=== PATIENT | male | born 1985 | race Caucasian/White ===

== ENCOUNTER 2017-12-19 19:42 | Emergency (ER) | payer OTHER ==
[~2017-12-19] VITALS: Ht 175.3 cm; Wt 95.0 kg
[~2017-12-19 19:42] MED LIST: Z.0.NO CURRENT MEDS
[2017-12-19 19:51] VITALS: BP 163/86; PULSE 108; RESP 16; TEMP 97.3; O2SAT 96
[2017-12-19] MEDS ORDERED: ACETAMINOPHEN 325 MG TAB PO PRN (20:15)
[2017-12-19] MEDS ORDERED: LORazepam 2 MG TAB PO PRN (20:15)
[2017-12-19] MEDS ORDERED: ONDANSETRON ODT 4 MG TAB PO PRN (20:15)
[2017-12-19] MEDS ORDERED: LORazepam 1 MG TAB PO PRN (20:15)
[2017-12-19] MEDS ORDERED: FLUMAZENIL 0.5 MG/5 ML VIAL IV PUSH PRN (20:15)
[2017-12-19] MEDS ORDERED: LORazepam 2 MG/ML VIAL IV PUSH PRN ×4 (20:15)
--- NOTE | 2017-12-19 20:58 | PD ---
HPI Chief Complaint: Alcohol/Drug Intoxication Time Seen by Provider: 20:01 Travel History International Travel<30 days: No Contact w/Intl Traveler<30days: No Traveled to known affect area: No History of Present Illness HPI 32-year-old male that presents to the ED for evaluation of a jaramillo act. Patient was Jaramillo acted by police after making suicidal statements. Patient states that he got in argument with his significant other and made suicidal statements. Patient apparently has been drinking a lot today. Per patient he does have a history of anxiety and depression. He denies any injury or trauma. He does smell heavily of alcohol. He denies any other drug use. Per patient has been taking medications for his depression and anxiety. Patient denies any other medical issues. No allergies to medication. Has not seen anybody for this. Symptoms appear to have worsened today secondary to argument as well as alcohol. PFSH Past Medical History Medical History: Denies Significant Hx Hx Anticoagulant Therapy: No Cardiovascular Problems: No Chemotherapy: No Cerebrovascular Accident: No Diabetes: No Diminished Hearing: No Respiratory: No Past Surgical History Surgical History: No Previous Surgery Tonsillectomy: Yes Other Surgery: Yes (RHINOPLASTY) Social History Alcohol Use: Yes (20 -30 DRINKS TODAY) Tobacco Use: Yes Substance Use: No Allergies-Medications (Allergen,Severity, Reaction): Coded Allergies: No Known Allergies (Unverified , 10/25/12) Reported Meds & Prescriptions Reported Meds & Active Scripts Active Reported No Current Meds (Miscellaneous Medication) Misc Review of Systems ROS Limitations: Intoxication Except as stated in HPI: all other systems reviewed are Neg Physical Exam Exam Limitations: Intoxication Narrative GENERAL: SKIN: Warm and dry. HEAD: Atraumatic. Normocephalic. EYES: Pupils equal and round. No scleral icterus. No injection or drainage. ENT: No nasal bleeding or discharge. Mucous membranes pink and moist. NECK: Trachea midline. No JVD. CARDIOVASCULAR: Regular rate and rhythm. RESPIRATORY: No accessory muscle use. Clear to auscultation. Breath sounds equal bilaterally. GASTROINTESTINAL: Abdomen soft, non-tender, nondistended. Hepatic and splenic margins not palpable. MUSCULOSKELETAL: Extremities without clubbing, cyanosis, or edema. No obvious deformities. NEUROLOGICAL: Awake and alert. No obvious cranial nerve deficits. Motor grossly within normal limits. Five out of 5 muscle strength in the arms and legs. Normal speech. PSYCHIATRIC: Appropriate mood and affect; insight and judgment normal. Data Data Last Documented VS Vital Signs Date Time Temp Pulse Resp B/P (MAP) Pulse Ox O2 Delivery O2 Flow Rate FiO2 12/19/17 19:51 97.3 108 16 163/86 (111) 96 Orders Orders Complete Blood Count With Diff (12/19/17 19:56) Comprehensive Metabolic Panel (12/19/17 19:56) Thyroid Stimulating Hormone (12/19/17 19:56) Psych Screen (12/19/17 19:56) Drug Screen, Random Urine (12/19/17 19:56) Alcohol (Ethanol) (12/19/17 19:56) Salicylates (Aspirin) (12/19/17 19:56) Tylenol (Acetaminophen) (12/19/17 19:56) Alcohol Withdrawal Asmt-Ciwa ONCE (12/19/17 20:01) Ondansetron Odt (Zofran Odt) (12/19/17 20:15) Acetaminophen (Tylenol) (12/19/17 20:15) Flumazenil Inj (Romazicon Inj) (12/19/17 20:15) Lorazepam (Ativan) (12/19/17 20:15) Lorazepam Inj (Ativan Inj) (12/19/17 20:15) Lorazepam (Ativan) (12/19/17 20:15) Lorazepam Inj (Ativan Inj) (12/19/17 20:15) Lorazepam Inj (Ativan Inj) (12/19/17 20:15) Lorazepam Inj (Ativan Inj) (12/19/17 20:15) Labs Laboratory Tests Test 12/19/17 20:06 [facility] Medical Decision Making Medical Screen Exam Complete: Yes Emergency Medical Condition: Yes Medical Record Reviewed: Yes Differential Diagnosis Depression versus suicidal ideation versus anxiety versus adjustment disorder versus mood disorder versus bipolar disorder versus schizophrenia versus paranoid disorder versus psychosis versus substance abuse versus alcohol abuse versus alcohol induced psychosis versus homicidality addition versus cutting versus personality disorder Narrative Course 32-year-old male that presents to the ED for evaluation of Jaramillo act. Patient was properly examined and was found to have signs and symptoms consistent appears to be Jaramillo act. Labs were ordered. Patient will be medically clear. Okay to be seen by psych. CIWA was ordered by me. Mental health screening was discussed with the patient. Diagnosis Primary Impression: Suicidal ideation Additional Impression: Alcohol intoxication Qualified Codes: F10.920 - Alcohol use, unspecified with intoxication, uncomplicated Eladio Null Dec 19, 2017 20:58
[2017-12-19 23:27] LABS: BASOPHIL # 0.1 TH/MM3 (0-0.2); BASOPHIL % 1.2 % (0.0-2.0); EOSINOPHIL # 0.3 TH/MM3 (0-0.4); EOSINOPHIL % 2.9 % (0.0-4.0); HEMATOCRIT 44.8 % (39.0-51.0); HEMOGLOBIN 15.3 GM/DL (13.0-17.0); LYMPH % 36.9 % (9.0-44.0); LYMPHOCYTE # 3.4 TH/MM3 (1.0-4.8); MEAN CELL VOLUME 91.4 FL (80.0-100.0); MEAN CORPUSCULAR HEMOGLOBIN 31.2 PG (27.0-34.0); MEAN CORPUSCULAR HGB CONC 34.2 % (32.0-36.0); MEAN PLATELET VOLUME 8.1 FL (7.0-11.0); MONO % 5.5 % (0.0-8.0); MONOCYTE # 0.5 TH/MM3 (0-0.9); NEUT % 53.5 % (16.0-70.0); PLATELET COUNT 261 TH/MM3 (150-450); RED CELL DISTRIBUTION WIDTH 13.3 % (11.6-17.2); WHITE BLOOD COUNT 9.3 TH/MM3 (4.0-11.0)
[2017-12-19 23:44] LABS: ACETAMINOPHEN LESS THAN 2.0 MCG/ML (10.0-30.0); ALBUMIN 4.1 GM/DL (3.4-5.0); ALT (GPT) 66 U/L (12-78); AST (GOT) 62 U/L (15-37); BICARBONATE 26.5 MEQ/L (21.0-32.0); BLOOD UREA NITROGEN 8 MG/DL (7-18); CALCIUM 8.4 MG/DL (8.5-10.1); CHLORIDE 103 MEQ/L (98-107); CREATININE 1.02 MG/DL (0.60-1.30); GLOMERULAR FILTRATION RATE 85 ML/MIN (>89); GLUCOSE,RANDOM 85 MG/DL (74-106); SODIUM (NA) 140 MEQ/L (136-145)
[2017-12-19 23:53] LABS: ALKALINE PHOSPHATASE 103 U/L (45-117); TOTAL BILIRUBIN ADULT 0.4 MG/DL (0.2-1.0); TOTAL PROTEIN 7.1 GM/DL (6.4-8.2)
[2017-12-20 02:43] VITALS: BP 114/59; PULSE 71; RESP 17; O2SAT 98
--- NOTE | 2017-12-20 09:32 | PD ---
Physical Exam Time Seen by Provider: 09:[address] Gonzales has evaluated the patient, lifted Jaramillo act and cleared the patient for discharge. Data Data Last Documented VS Vital Signs Date Time Temp Pulse Resp B/P (MAP) Pulse Ox O2 Delivery O2 Flow Rate FiO2 12/20/17 02:43 71 17 114/59 (77) 98 Room Air 12/19/17 19:51 97.3 Orders Orders Complete Blood Count With Diff (12/19/17 19:56) Comprehensive Metabolic Panel (12/19/17 19:56) Thyroid Stimulating Hormone (12/19/17 19:56) Psych Screen (12/19/17 19:56) Drug Screen, Random Urine (12/19/17 19:56) Alcohol (Ethanol) (12/19/17 19:56) Salicylates (Aspirin) (12/19/17 19:56) Tylenol (Acetaminophen) (12/19/17 19:56) Alcohol Withdrawal Asmt-Ciwa ONCE (12/19/17 20:01) Ondansetron Odt (Zofran Odt) (12/19/17 20:15) Acetaminophen (Tylenol) (12/19/17 20:15) Flumazenil Inj (Romazicon Inj) (12/19/17 20:15) Lorazepam (Ativan) (12/19/17 20:15) Lorazepam Inj (Ativan Inj) (12/19/17 20:15) Lorazepam (Ativan) (12/19/17 20:15) Lorazepam Inj (Ativan Inj) (12/19/17 20:15) Lorazepam Inj (Ativan Inj) (12/19/17 20:15) Lorazepam Inj (Ativan Inj) (12/19/17 20:15) Diet Regular Basic (12/20/17 Breakfast) Labs Laboratory Tests Test 12/19/17 20:06 12/19/17 23:15 Urine Opiates Screen NEG Urine Barbiturates Screen NEG Urine Amphetamines Screen NEG Urine Benzodiazepines Screen NEG Urine Cocaine Screen NEG Urine Cannabinoids Screen NEG White Blood Count 9.3 TH/MM3 Red Blood Count 4.90 MIL/MM3 Hemoglobin 15.3 GM/DL Hematocrit 44.8 % Mean Corpuscular Volume 91.4 FL Mean Corpuscular Hemoglobin 31.2 PG Mean Corpuscular Hemoglobin Concent 34.2 % Red Cell Distribution Width 13.3 % Platelet Count 261 TH/MM3 Mean Platelet Volume 8.1 FL Neutrophils (%) (Auto) 53.5 % Lymphocytes (%) (Auto) 36.9 % Monocytes (%) (Auto) 5.5 % Eosinophils (%) (Auto) 2.9 % Basophils (%) (Auto) 1.2 % Neutrophils # (Auto) 5.0 TH/MM3 Lymphocytes # (Auto) 3.4 TH/MM3 Monocytes # (Auto) 0.5 TH/MM3 Eosinophils # (Auto) 0.3 TH/MM3 Basophils # (Auto) 0.1 TH/MM3 CBC Comment DIFF FINAL Differential Comment Blood Urea Nitrogen 8 MG/DL Creatinine 1.02 MG/DL Random Glucose 85 MG/DL Total Protein 7.1 GM/DL Albumin 4.1 GM/DL Calcium Level 8.4 MG/DL Alkaline Phosphatase 103 U/L Aspartate Amino Transf (AST/SGOT) 62 U/L Alanine Aminotransferase (ALT/SGPT) 66 U/L Total Bilirubin 0.4 MG/DL Sodium Level 140 MEQ/L Potassium Level 4.1 MEQ/L Chloride Level 103 MEQ/L Carbon Dioxide Level 26.5 MEQ/L Anion Gap 11 MEQ/L Estimat Glomerular Filtration Rate 85 ML/MIN Thyroid Stimulating Hormone 3rd Gen 0.749 uIU/ML Salicylates Level LESS THAN 1.7 MG/DL Acetaminophen Level LESS THAN 2.0 MCG/ML Ethyl Alcohol Level 223 MG/DL MDM Supervised Visit with FAY: No Narrative Course Dr. Gonzales has evaluated the patient, lifted [facility] and cleared the patient for discharge. Patient contracts safety. Denies suicidal or homicidal ideations. [facility] be provided [facility]. Has friends and family for support. Patient was medically cleared by alternate provider prior to psych screening. Patient has been evaluated by psychiatry and and is now cleared for discharge. Diagnosis Primary Impression: Alcohol-induced mood disorder Additional Impressions: Alcohol intoxication Qualified Codes: F10.920 - Alcohol use, unspecified with intoxication, uncomplicated Suicidal ideation Referrals: [facility] (Out patient) [facility] Primary Care Physician Psychiatrist [facility] Patient Instructions: General Instructions, Mood Disorders (ED) Departure Forms: Tests/Procedures Additional Instruction: Contract safety to your self and others Stop drinking alcohol Follow-up in the community for community support, such as Alcoholics Anonymous Follow-up with psychiatry Follow-up with primary care provider Follow-up with [facility] Return to the emergency department immediately with worsening of symptoms Med/Other Pt SpecificInfo: No Change to Meds, No Meds Exist/No RX given Disposition: 01 DISCHARGE HOME Condition: Stable Lisy Wheeler December 20, 2017 09:32
[2017-12-20 10:15] VITALS: BP 169/77; PULSE 92; RESP 18; O2SAT 99
--- NOTE | 2017-12-20 13:08 | PD.PSY.CON ---
Provisional Diagnosis Admission Date [place] I. Alcohol-induced mood disorder, alcohol use disorder, history of depression [place] II. Deferred [place] III. No medical history History of Present Illness Service Psychiatry Consult Requested By ER Reason for Consult Suicidal ideation Primary Care Physician Unknown HPI The patient was seen this morning at 7:45 AM The patient is 32-year-old man, domiciled alone in [facility], single, employed as a nurse, with psychiatric history of depression, alcohol use disorder, no previous psychiatric hospitalizations, no previous suicide attempts , he is not a psychotropics, no significant medical history, who presents to the ED for evaluation of a jaramillo act. Patient was Jaramillo acted by police after making suicidal statements. Patient states that he got in argument with his significant other and made suicidal statements. Patient apparently has been drinking a lot today. Patient BAL was 223. Now on psychiatric evaluation the patient is calm, cooperative, clinically sober. The patient reports that he was so drunk last that he does not even remember the reason he is in the hospital. Patient reports that he does not usually drink this way, he met a girl recently, they have been talking by phone, they went out yesterday for the second, he became very drunk, "I do not really remember what I told her that she called the police". At this moment the patient reports good mood, he denies suicidal and homicidal ideation, he denies visual and auditory hallucinations. He is logical, coherent and relevant. Oriented 3. Review of Systems Constitutional: DENIES: Diaphoretic episodes, Fatigue, Fever, Weight gain, Weight loss, Chills, Dizziness, Change in appetite, Night Sweats Endocrine: DENIES: Heat/cold intolerance, Polydipsia, Polyuria, Polyphagia Eyes: DENIES: Blurred vision, Diplopia, Eye inflammation, Eye pain, Vision loss , Photosensitivity, Double Vision Ears, nose, mouth, throat: DENIES: Tinnitus, Hearing loss, Vertigo, Nasal discharge, Oral lesions, Throat pain, Hoarseness, Ear Pain, Running Nose, Epistaxis, Sinus Pain, Toothache, Odynophagia Respiratory: DENIES: Apneas, Cough, Snoring, Wheezing, Hemoptysis, Sputum production, Shortness of breath Cardiovascular: DENIES: Chest pain, Palpitations, Syncope, Dyspnea on Exertion , PND, Lower Extremity Edema, Orthopnea, Claudication Gastrointestinal: DENIES: Abdominal pain, Black stools, Bloody stools, Constipation, Diarrhea, Nausea, Vomiting, Difficulty Swallowing, Anorexia Genitourinary: DENIES: Sexual dysfunction, Urinary frequency, Urinary incontinence, Urgency, Hematuria, Dysuria, Nocturia, Penile Discharge, Testicular Pain, Testicular Swelling Musculoskeletal: DENIES: Joint pain, Muscle aches, Stiffness, Joint Swelling, Back pain, Neck pain Hematologic/lymphatic: DENIES: Bruising, Lymphadenopathy Neurologic: DENIES: Abnormal gait, Headache, Localized weakness, Paresthesias, Seizures, Speech Problems, Tremor, Poor Balance Psychiatric: DENIES: Anxiety, Confusion, Mood changes, Depression, Hallucinations, Agitation, Suicidal Ideation, Homicidal Ideation, Delusions Past Family Social History Coded Allergies: No Known Allergies (Unverified , 10/25/12) Reported Medications Miscellaneous (No Current Meds) Misc 10/25/12 Family Psych History No family psychiatric he Social History Patient was born and raised in [place], he lives alone in [facility], single, employed as a nurse in [employer] Patient's Strengths (min. 2) Employed, Physical Exam Vital Signs Vital Signs Date Time Temp Pulse Resp B/P (MAP) Pulse Ox O2 Delivery O2 Flow Rate FiO2 12/20/17 10:30 12/20/17 10:15 92 18 99 12/20/17 02:43 Room Air 12/19/17 19:51 97.3 Lab Results Test 12/19/17 20:06 12/19/17 23:15 Urine Opiates Screen NEG Urine Barbiturates Screen NEG Urine Amphetamines Screen NEG Urine Benzodiazepines Screen NEG Urine Cocaine Screen NEG Urine Cannabinoids Screen NEG White Blood Count 9.3 TH/MM3 Red Blood Count 4.90 MIL/MM3 Hemoglobin 15.3 GM/DL Hematocrit 44.8 % Mean Corpuscular Volume 91.4 FL Mean Corpuscular Hemoglobin 31.2 PG Mean Corpuscular Hemoglobin Concent 34.2 % Red Cell Distribution Width 13.3 % Platelet Count 261 TH/MM3 Mean Platelet Volume 8.1 FL Neutrophils (%) (Auto) 53.5 % Lymphocytes (%) (Auto) 36.9 % Monocytes (%) (Auto) 5.5 % Eosinophils (%) (Auto) 2.9 % Basophils (%) (Auto) 1.2 % Neutrophils # (Auto) 5.0 TH/MM3 Lymphocytes # (Auto) 3.4 TH/MM3 Monocytes # (Auto) 0.5 TH/MM3 Eosinophils # (Auto) 0.3 TH/MM3 Basophils # (Auto) 0.1 TH/MM3 CBC Comment DIFF FINAL Differential Comment Blood Urea Nitrogen 8 MG/DL Creatinine 1.02 MG/DL Random Glucose 85 MG/DL Total Protein 7.1 GM/DL Albumin 4.1 GM/DL Calcium Level 8.4 MG/DL Alkaline Phosphatase 103 U/L Aspartate Amino Transf (AST/SGOT) 62 U/L Alanine Aminotransferase (ALT/SGPT) 66 U/L Total Bilirubin 0.4 MG/DL Sodium Level 140 MEQ/L Potassium Level 4.1 MEQ/L Chloride Level 103 MEQ/L Carbon Dioxide Level 26.5 MEQ/L Anion Gap 11 MEQ/L Estimat Glomerular Filtration Rate 85 ML/MIN Thyroid Stimulating Hormone 3rd Gen 0.749 uIU/ML Salicylates Level LESS THAN 1.7 MG/DL Acetaminophen Level LESS THAN 2.0 MCG/ML Ethyl Alcohol Level 223 MG/DL Mental Status Examination Appearance: Appropriate Consciousness: Alert Orientation: x4 Motor Activity: Normal gait Speech: Unremarkable Language: Adequate Fund of Knowledge: Adequate Attention and Concentration: Adequate Memory: Unremarkable Mood: Appropriate Affect: Appropriate Thought Process & Associations: Intact Thought Content: Appropriate Hallucination Type: None Delusion Type: None Suicidal Ideation: No Suicidal Plan: No Suicidal Intention: No Homicidal Ideation: No Homicidal Plan: No Homicidal Intention: No Insight: Adequate Judgment: Adequate Assessment & Plan Problem List: (1) Alcohol abuse with alcohol-induced mood disorder ICD Codes: F10.14 - Alcohol abuse with alcohol-induced mood disorder Assessment & Plan: Psychiatric evaluation today the patient is clinically sober , logical, coherent and relevant. The patient denies symptomatology of depression, anxiety, christina and psychosis. He denies suicidal and was ideation. He denies visual and auditory hallucinations. Recent suicidal statement was most probably secondary to acute alcohol intoxication. He does not meet criteria for involuntary psychiatric admission at this moment. Patient was widely counseled about avoiding alcohol and substance use. Jaramillo act will be lifted Assessment & Plan Estimated LOS: Antony Hudson MD December 20, 2017 13:08
== END 2017-12-20 10:41 | disposition home or self-care (01) ==
LOC: NEDAMB 19:42 → NEPJ 12-20 10:41
DX: F10.14 Alcohol abuse with alcohol-induced mood disorder (principal); R45.851 Suicidal ideations; F32.9 Major depressive disorder, single episode, unspecified; Y90.7 Blood alcohol level of 200-239 mg/100 ml
CPT/HCPCS: 80053; 80307; 84443; 85025; 99283

== ENCOUNTER 2018-01-26 10:01 | Observation (INO) | payer OTHER ==
[~2018-01-26] VITALS: Ht 177.8 cm; Wt 105.6 kg
[2018-01-26] MEDS ORDERED: DOCU100C15 PO (10:51)
[2018-01-26] MEDS ORDERED: CYCL10TA PO (10:51)
[2018-01-26] MEDS ORDERED: OXYC1TAB36 PO (10:51)
[2018-01-26] MEDS ORDERED: PROP20TA3 PO (10:51)
[2018-01-26] MEDS ORDERED: IBUP1TAB7 PO (10:51)
[2018-01-26 11:21] LABS: AUTOMATED NEUTROPHIL # 3.8 TH/MM3 (1.8-7.7); BASOPHIL # 0.1 TH/MM3 (0-0.2); BASOPHIL % 1.2 % (0.0-2.0); EOSINOPHIL # 0.2 TH/MM3 (0-0.4); EOSINOPHIL % 3.2 % (0.0-4.0); HEMATOCRIT 41.9 % (39.0-51.0); HEMOGLOBIN 14.3 GM/DL (13.0-17.0); LYMPH % 30.3 % (9.0-44.0); MEAN CELL VOLUME 90.8 FL (80.0-100.0); MEAN CORPUSCULAR HEMOGLOBIN 30.9 PG (27.0-34.0); MEAN PLATELET VOLUME 8.5 FL (7.0-11.0); MONO % 7.7 % (0.0-8.0); MONOCYTE # 0.5 TH/MM3 (0-0.9); NEUT % 57.6 % (16.0-70.0); PLATELET COUNT 243 TH/MM3 (150-450); RED BLOOD COUNT 4.62 MIL/MM3 (4.50-5.90); WHITE BLOOD COUNT 6.5 TH/MM3 (4.0-11.0)
[2018-01-26] MEDS ORDERED: METOPROLOL TARTRATE 25 MG TAB PO PRN (11:45)
[2018-01-26] MEDS ORDERED: LACTATED RINGER'S 1000 ML IV PRN (11:45)
[2018-01-26] MEDS ORDERED: CHLORHEXIDINE GLUCONATE 2 % 1 PACK (2 CLOTHS) TOPICAL PRN (11:45)
[2018-01-26] MEDS ORDERED: SODIUM CHLORID 0.9% 500 ML IV PRN (11:45)
[2018-01-26] MEDS ORDERED: POVIDONE IODINE 5% (ANTISEPSIS KIT) 4 APPLICATIONS EACH NARE PRN (11:45)
[2018-01-26] MEDS ORDERED: ceFAZolin INJ 1,000 MG VIAL IV ONE ×2 (12:00→14:35)
[2018-01-26] MEDS ORDERED: DEXAMETHASONE SOD PHOS 4 MG/ML VIAL IV ONE (12:00)
[2018-01-26] MEDS ORDERED: ONDANSETRON HCL 4 MG/2 ML VIAL IV ONE (12:00)
[2018-01-26] MEDS ORDERED: LIDOCAINE HCL 1% PF 5 ML SYRINGE OTHER ONE (12:00)
[2018-01-26] MEDS ORDERED: ePHEDrine/NS 25 MG/5 ML SYRINGE IV ONE (12:00)
[2018-01-26] MEDS ORDERED: PHENYLEPH/NS 1000 MCG/10 ML SYR IV ONE (12:00)
[2018-01-26] MEDS ORDERED: PROPOFOL 200 MG/20 ML AMP IV ONE (12:00)
[2018-01-26] MEDS ORDERED: LACTATED RINGER'S 1000 ML INJ 2,000 ML IV ONE (12:00)
[2018-01-26] MEDS ORDERED: ACETAMINOPHEN 1000 MG/100 ML 100 ML IV ONE (12:10)
[2018-01-26] MEDS ORDERED: FAT EMULSION 20% INJ 0 ML ONE (12:33)
[2018-01-26] MEDS ORDERED: GENTAMICIN SULFATE 80 MG/2 ML VIAL ONE (12:38)
[2018-01-26] MEDS ORDERED: GELFOAM SIZE 100 ONE (12:38)
[2018-01-26] MEDS ORDERED: MIDAZOLAM HCL 5 MG/5 ML VIAL ONE (12:44)
[2018-01-26] MEDS ORDERED: BUPIVACAINE HCL PF 0.5% 30 ML VIAL ONE (12:44)
[2018-01-26] MEDS ORDERED: CHLORHEXIDINE GLUCONATE 4% SOLN 120 ML BTL TOPICAL SCH (12:45)
[2018-01-26] MEDS ORDERED: DEXAMETHASONE SOD PHOS 4 MG/ML VIAL ONE (12:45)
[2018-01-26] MEDS ORDERED: ceFAZolin 2 GM PREMIX 50 ML IV SCH (12:45)
[2018-01-26] MEDS ORDERED: BUPIVACAINE/EPINEPHRINE 0.5% PF 10 ML VIAL ONE (15:52)
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
[2018-01-26] MEDS ORDERED: OXYC-395 PO (16:19)
[2018-01-26] MEDS ORDERED: DEXMEDETOMIDINE HCL 200 MCG/2 ML VIAL ONE (16:45)
--- NOTE | 2018-01-26 17:01 | RADRPT ---
EXAM DATE: 01/26/2018 4:41 PM EDT AGE/SEX: 33 years / Male INDICATIONS: Orif left clavicle CLINICAL DATA: This is the patient's initial encounter. Patient reports that signs and symptoms have been present for 1 day and indicates a pain score of Nonresponsive. MEDICAL/SURGICAL HISTORY: None. None. COMPARISON: No prior exams available for comparison. FINDINGS: Side plate and multiple screws traverse the left clavicle with excellent anatomical alignm ent of the bony structures. CONCLUSION: Intact postsurgical changes for technique. Electronically signed by: Roberto Herring MD 01/26/2018 5:00 PM EDT
[2018-01-26] MEDS ORDERED: MORPHINE SULFATE 4 MG/ML INJ IV PUSH PRN (18:30)
[2018-01-26] MEDS ORDERED: DO NOT ADM ANY ANTICOAGULANT DRUGS PRN (18:45)
[2018-01-26] MEDS: SODIUM CHLOR 0.9% 1000 ML INJ 1,000 ML IV SCH (18:45)
[2018-01-26 20:00] VITALS: BP 113/60; PULSE 71; RESP 18; TEMP 97.7; O2SAT 94
[2018-01-26] MEDS: oxyCODONE/ACETAMINOPHEN 10 MG/325 MG TAB PO PRN (21:19)
[2018-01-26] MEDS: MORPHINE SULFATE 4 MG/ML INJ IV PRN (23:39)
[2018-01-27] VITALS: BP 158/70; PULSE 111; RESP 20; TEMP 97.4; O2SAT 94
[2018-01-27] MEDS: oxyCODONE/ACETAMINOPHEN 10 MG/325 MG TAB PO PRN ×2 (02:24→07:56)
[2018-01-27 04:00] VITALS: BP 133/74; PULSE 80; RESP 16; TEMP 98.5; O2SAT 98
[2018-01-27] MEDS: MORPHINE SULFATE 4 MG/ML INJ IV PRN (04:23)
[2018-01-27] MEDS: SODIUM CHLOR 0.9% 1000 ML INJ 1,000 ML IV SCH (07:15)
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
--- NOTE | 2018-01-27 07:55 | HHI.DS ---
Discharge Summary Admission Date Jan 26, 2018 at 17:44 Discharge Date: Jan 27, 2018 Admitting Diagnosis Fracture left clavicle Diagnosis: (1) Closed left clavicular fracture Diagnosis: Principal ICD Codes: S42.002A - Fracture of unspecified part of left clavicle, initial encounter for closed fracture Procedures Open treatment internal fixation left clavicle fracture with plate and screws Brief History This is a 33 year old male patient CBC/BMP: 01/26/18 1050 Significant Findings Laboratory Tests Test 01/26/18 10:50 Imaging Intraoperative x-ray left clavicle shows anatomic alignment with plate and screws PE at Discharge Sitting in bed. Appears comfortable. Dressing dry. Neuro exam normal Hospital Course The patient was brought for same day surgery anticipating going home the same day. He spent the night after having open treatment internal fixation under a general anesthetic. The first postoperative day he looks satisfactory was thought to be a candidate for discharge to home Pt Condition on Discharge: Good Discharge Disposition: Discharge Home Discharge Instructions Diet Instructions: As Tolerated, No Restrictions Activities You Can Perform: See Additionl Instruction (Limited lifting left arm , sling adult basic education instructor) Activities to Avoid: Shower, Driving Additional Activity Instruc.: Sling. Limited lifting left arm Henri Ferrera MD Jan 27, 2018 07:55
[2018-01-27 08:00] VITALS: BP 134/83; PULSE 101; RESP 18; TEMP 98.2; O2SAT 94
[2018-01-27 08:04] VITALS: RESP 18
== END 2018-01-27 08:53 | disposition home or self-care (01) ==
LOC: HSDC 10:01 → HSDI 17:44 → N06B 19:13
PROVIDERS: ADMIT Orthopaedic Surgery Orthopaedic Surgery of the Spine; ATTEND Orthopaedic Surgery Orthopaedic Surgery of the Spine
DX: S42.022A Displaced fracture of shaft of left clavicle, initial encounter for closed fracture (principal); S22.42XA Multiple fractures of ribs, left side, initial encounter for closed fracture; M19.012 Primary osteoarthritis, left shoulder; V86.56XA Driver of dirt bike or motor/cross bike injured in nontraffic accident, initial encounter
CPT/HCPCS: 00450; 23515; 64415; 73000; 76000; 85025; 96374; 96376; C1713; G0378; J0131; J0690; J1100; J1580; J2250; J2270; J2370; J2405; J3010; J7120